=== PATIENT | female | born 2005 | race Two or more races ===

== ENCOUNTER 2025-05-19 12:11 | Emergency (ER) | payer OTHER, SELFPAY ==
[~2025-05-19] VITALS: Ht 157.5 cm; Wt 61.9 kg
[2025-05-19 14:55] VITALS: O2SAT 96
[2025-05-19 15:28] VITALS: TEMP 98.3
[2025-05-19] MEDS ORDERED: BENZ200C70 PO (15:29)
[2025-05-19] MEDS ORDERED: BREAMIS10 MC (15:29)
[2025-05-19 15:30] VITALS: BP 114/60; O2SAT 99
[2025-05-19] MEDS ORDERED: PRED20TA PO (15:34)
== END 2025-05-19 15:46 | disposition home or self-care (01) ==
LOC: M ED 12:11
DX: J45.909 Unspecified asthma, uncomplicated (principal); H53.8 Other visual disturbances; D64.9 Anemia, unspecified; F17.290 Nicotine dependence, other tobacco product, uncomplicated; Z79.52 Long term (current) use of systemic steroids; Z79.899 Other long term (current) drug therapy